=== PATIENT | male | born 1990 | race American Indian/Alaskan Native ===

== ENCOUNTER 2017-03-26 02:33 | Emergency (ER) | payer MEDICAID ==
[~2017-03-26] VITALS: Ht 175.3 cm; Wt 100.0 kg
[2017-03-26 02:35] VITALS: BP 141/86
[2017-03-26] MEDS ORDERED: LIDOCAINE 1%, 20ML ONE (03:22)
[2017-03-26] MEDS ORDERED: LIDOCAINE 1%, 20ML SQ ONE (03:30)
[2017-03-26] MEDS ORDERED: BACITRACIN ZINC OINT 500U/GM, 0.9 GM ONE (04:25)
== END 2017-03-26 04:39 | disposition home or self-care (01) ==
LOC: ED 02:53
DX: S51.811A Laceration without foreign body of right forearm, initial encounter (principal); F17.210 Nicotine dependence, cigarettes, uncomplicated; Z59.0 Homelessness; X58.XXXA Exposure to other specified factors, initial encounter; Y93.89 Activity, other specified; Y99.8 Other external cause status; Y92.488 Other paved roadways as the place of occurrence of the external cause
CPT/HCPCS: 12002

== ENCOUNTER 2017-12-15 15:43 | Emergency (ER) | payer MEDICAID ==
[~2017-12-15] VITALS: Ht 175.3 cm; Wt 89.0 kg
[2017-12-15] MEDS ORDERED: SODIUM CHLORIDE 0.9% 1,000ML IVBOLUS ONE (16:30)
[2017-12-15] MEDS ORDERED: LIDOCAINE 1%, 10ML INFIL ONE (16:30)
[2017-12-15 16:46] LABS: BASOPHILS # (AUTO) 0.02 x10^3/uL (0-0.1); BASOPHILS % (AUTO) 0 % (0-1); EOSINOPHILS # (AUTO) 0.25 x10^3/uL (0-0.4); EOSINOPHILS % (AUTO) 3 % (1-7); LYMPHOCYTES # (AUTO) 1.41 x10^3/uL (1-3.4); LYMPHOCYTES % (AUTO) 19 % (22-44); MD NO; MEAN CORPUSCULAR HEMOGLOBIN 29.6 pg (27.5-34.5); MEAN CORPUSCULAR HGB CONC 33.9 g/dL (33.2-36.2); MEAN CORPUSCULAR VOLUME 87.4 fL (81-97); MONOCYTES # (AUTO) 0.45 x10^3/uL (0.2-0.8); MONOCYTES % (AUTO) 6 % (2-9); NEUTROPHILS # (AUTO) 5.37 x10^3/uL (1.8-6.8); NEUTROPHILS % (AUTO) 72 % (42-75); PLATELET COUNT 245 x10^3/uL (130-400); RED BLOOD COUNT 5.26 x10^6/uL (4.38-5.82); RED CELL DISTRIBUTION WIDTH 13.4 % (9.4-14.8)
[2017-12-15 16:56] LABS: ANION GAP 5 mmol/L (5-15); CALCIUM 8.7 mg/dL (8.5-10.1); CHLORIDE 107 mmol/L (98-107); CREATININE 0.99 mg/dL (0.7-1.3)
[2017-12-15] MEDS ORDERED: BACITRACIN ZINC OINT 500U/GM, 0.9 GM TP ONE (17:00)
[2017-12-15] MEDS ORDERED: BACITRACIN ZINC OINT 500U/GM, 0.9 GM ONE (17:10)
[2017-12-15 17:54] VITALS: BP 110/70
== END 2017-12-15 17:56 | disposition home or self-care (01) ==
LOC: ED 17:50
DX: S06.2X1A Diffuse traumatic brain injury with loss of consciousness of 30 minutes or less, initial encounter (principal); S01.112A Laceration without foreign body of left eyelid and periocular area, initial encounter; R55 Syncope and collapse; W18.39XA Other fall on same level, initial encounter; Y93.89 Activity, other specified; Y92.89 Other specified places as the place of occurrence of the external cause; Y99.8 Other external cause status; Z59.0 Homelessness
CPT/HCPCS: 12013; 36415; 80048; 85025; 93005; 96361; 99285; J7030

== ENCOUNTER 2018-07-29 22:51 | Emergency (ER) | payer MEDICAID ==
[~2018-07-29] VITALS: Ht 175.3 cm; Wt 98.5 kg
[2018-07-29 22:52] VITALS: BP 153/84
[2018-07-29] MEDS ORDERED: LIDOCAINE-MPF 1%, 5ML ONE (23:22)
[2018-07-29] MEDS ORDERED: BACITRACIN ZINC OINT 500U/GM, 0.9 GM ONE (23:30)
[2018-07-29] MEDS ORDERED: LIDOCAINE 1%, 10ML INFIL ONE (23:30)
== END 2018-07-30 00:12 | disposition home or self-care (01) ==
LOC: ED 07-30 00:06
DX: S61.412A Laceration without foreign body of left hand, initial encounter (principal); W26.0XXA Contact with knife, initial encounter; Y93.89 Activity, other specified; Y92.009 Unspecified place in unspecified non-institutional (private) residence as the place of occurrence of the external cause; Y99.8 Other external cause status
CPT/HCPCS: 12041; 99284

== ENCOUNTER 2018-07-30 14:34 | Emergency (ER) | payer MEDICAID ==
[~2018-07-30] VITALS: Ht 175.3 cm; Wt 88.2 kg
[2018-07-30 15:05] VITALS: BP 109/56
[2018-07-30] MEDS ORDERED: BACITRACIN ZINC OINT 500U/GM, 0.9 GM ONE (15:31)
== END 2018-07-30 15:52 | disposition home or self-care (01) ==
LOC: ED 15:00
DX: S61.412D Laceration without foreign body of left hand, subsequent encounter (principal); F17.200 Nicotine dependence, unspecified, uncomplicated; X58.XXXD Exposure to other specified factors, subsequent encounter
CPT/HCPCS: 99283

== ENCOUNTER 2018-08-12 13:30 | Emergency (ER) | payer MEDICAID ==
[~2018-08-12] VITALS: Ht 175.3 cm; Wt 90.0 kg
[2018-08-12 13:56] VITALS: BP 115/48
== END 2018-08-12 14:37 | disposition home or self-care (01) ==
LOC: ED 14:20
DX: S61.412D Laceration without foreign body of left hand, subsequent encounter (principal); X58.XXXD Exposure to other specified factors, subsequent encounter
CPT/HCPCS: 99282

== ENCOUNTER 2018-11-07 16:01 | Emergency (ER) | payer MEDICAID ==
[~2018-11-07] VITALS: Ht 175.3 cm; Wt 92.1 kg
[2018-11-07 16:19] VITALS: BP 106/69
--- NOTE | 2018-11-07 16:51 | NUR ---
Patient/Caregiver given discharge instructions and they have confirmed that they understand the instructions. Patient ambulatory with steady gait.
== END 2018-11-07 16:52 | disposition home or self-care (01) ==
LOC: ED 16:29
DX: L03.115 Cellulitis of right lower limb (principal)
CPT/HCPCS: 99283

== ENCOUNTER 2019-10-04 23:17 | Emergency (ER) | payer MEDICAID ==
[~2019-10-04] VITALS: Ht 175.3 cm; Wt 97.8 kg
[2019-10-04 23:19] VITALS: BP 127/69
[2019-10-04] MEDS ORDERED: ONDANSETRON ODT 4 MG ONE (23:55)
--- NOTE | 2019-10-04 23:56 | NUR ---
PT MEDICATED PER EMAR. 5 RIGHTS ADDRESSED. PT RESTING ON GURNEY WATCHING TV. NO DISTRESS NOTED. AWAITING LABS AT THIS TIME. WILL CONTINUE TO MONITOR.
[2019-10-05] LABS: BASOPHILS # (AUTO) 0.01 x10^3/uL (0-0.1); BASOPHILS % (AUTO) 0 % (0-1); EOSINOPHILS # (AUTO) 0.17 x10^3/uL (0-0.4); EOSINOPHILS % (AUTO) 2 % (1-7); LYMPHOCYTES # (AUTO) 1.09 x10^3/uL (1-3.4); LYMPHOCYTES % (AUTO) 11 % (22-44); MD NO; MEAN CORPUSCULAR HGB CONC 33.8 g/dL (33.2-36.2); MEAN CORPUSCULAR VOLUME 88.7 fL (81-97); MEAN PLATELET VOLUME 9.5 fL (7.4-10.4); MONOCYTES # (AUTO) 0.33 x10^3/uL (0.2-0.8); MONOCYTES % (AUTO) 3 % (2-9); NEUTROPHILS # (AUTO) 8.11 x10^3/uL (1.8-6.8); NEUTROPHILS % (AUTO) 84 % (42-75); PLATELET COUNT 172 x10^3/uL (130-400); RED BLOOD COUNT 4.47 x10^6/uL (4.38-5.82); RED CELL DISTRIBUTION WIDTH 13.5 % (9.4-14.8)
[2019-10-05] MEDS ORDERED: ONDANSETRON ODT 4 MG PO ONE
[2019-10-05 00:10] LABS: ALANINE AMINOTRANSFERASE 190 U/L (12-78); ALBUMIN 3.5 g/dL (3.4-5.0); ANION GAP 4 mmol/L (5-15); CALCIUM 8.1 mg/dL (8.5-10.1); CHLORIDE 104 mmol/L (98-107); CREATININE 0.97 mg/dL (0.7-1.3)
[2019-10-05 00:12] LABS: ALKALINE PHOSPHATASE 90 U/L (45-117); BILIRUBIN,TOTAL 0.7 mg/dL (0.2-1.0)
--- NOTE | 2019-10-05 00:22 | NUR ---
CHART UP FOR RECHECK
--- NOTE | 2019-10-05 01:17 | NUR ---
Patient/Caregiver given discharge instructions and they have confirmed that they understand the instructions. Patient ambulatory with steady gait.
== END 2019-10-05 01:19 | disposition home or self-care (01) ==
LOC: ED 10-05 00:51
DX: R10.84 Generalized abdominal pain (principal); R11.10 Vomiting, unspecified
CPT/HCPCS: 36415; 80053; 83690; 85025; 99283; Q0162

== ENCOUNTER 2021-03-14 17:28 | Emergency (ER) | payer SELFPAY ==
[~2021-03-14] VITALS: Ht 175.3 cm; Wt 99.2 kg
[2021-03-14 17:35] VITALS: BP 127/97
--- NOTE | 2021-03-14 21:51 | NUR ---
PT CALLED FOR ROOM. NA X 1
--- NOTE | 2021-03-14 22:21 | NUR ---
PT CALLED FOR ROOM. NA X 2
--- NOTE | 2021-03-14 22:37 | NUR ---
NA X 3
== END 2021-03-14 22:38 | disposition left against medical advice (07) ==
LOC: ED 17:45
DX: R07.89 Other chest pain (principal)
CPT/HCPCS: 71045; 99283